=== PATIENT | male | born 1945 | race Two or more races ===

== ENCOUNTER 2018-03-18 11:21 | Inpatient (IN) | payer MEDICARE, MEDICAID ==
[~2018-03-18] VITALS: Ht 180.3 cm; Wt 77.1 kg
[2018-03-18] MEDS ORDERED: Sodium Chloride 500ML 500 ML IV ONE (11:33)
[2018-03-18 11:34] VITALS: BP 137/94
--- NOTE | 2018-03-18 11:54 | Emergency Room Report ---
History of Present Illness General Chief Complaint: Dizziness Source: Patient Present Illness HPI Patient present with multiple complaints Reports that he has had significant dizziness multiple falls over the past several days Discussing further he reports that most of her symptoms also ongoing for about a month to 2 months Patient reports taking medication for his memory Patient also reports taking medications for diabetes however reports that he does not have diabetes Denies any chest pain denies any vomiting he does feel generally malaised Allergies: Coded Allergies: No Known Allergies (Unverified , 03/18/18) Patient History Past Medical History: see triage record Pertinent Family History: none Reviewed Nursing Documentation: PMH: Agreed; PSxH: Agreed Nursing Documentation-PMH Past Medical History: No Stated History Review of Systems All Other Systems: negative except mentioned in HPI Physical Exam Vital Signs Date Time Temp Pulse Resp B/P (MAP) Pulse Ox O2 Delivery O2 Flow Rate FiO2 03/18/18 11:27 98.2 98 20 137/94 96 Room Air 98.2 Sp02 EP Interpretation: reviewed, normal General Appearance: no apparent distress - however appears mildly tremulous Head: normocephalic, atraumatic Eyes: bilateral eye PERRL, bilateral eye EOMI ENT: hearing grossly normal, normal pharynx, TMs + canals normal, uvula midline Neck: full range of motion, supple, no meningismus, no bony tend Respiratory: lungs clear, normal breath sounds, no rhonchi, no respiratory distress, no retraction, no accessory muscle use Cardiovascular #1: normal peripheral pulses, regular rate, rhythm, no edema, no gallop, no JVD, no murmur Gastrointestinal: normal bowel sounds, non tender, soft, no mass, no organomegaly, non-distended, no guarding, no hernia, no pulsatile mass, no rebound Genitourinary: no CVA tenderness Musculoskeletal: normal inspection Neurologic: oriented x3, responsive, cutter and paster press clippings III-XII nml as tested, motor strength/ tone normal, sensory intact Psychiatric: mood/affect normal Skin: normal color, no rash, warm/dry, palpation normal Lymphatic: normal inspection, no adenopathy Medical Decision Making Diagnostic Impression: Primary Impression: Dizziness Additional Impressions: UTI (urinary tract infection) Weakness ER Course Given the patient's history exam and presentation There are multiple differentials in consideration Patient has extensive workup initiated Urine sample is significantly infected Patient started on broad-spectrum antibiotics Patient attempted to ambulate and appears extremely unstable Patient has multiple falls recently including evidence on CT imaging with soft tissue changes on the scalp Patient is not safe to be discharged home and requires further inpatient care Labs Test 03/18/18 11:50 03/18/18 12:52 White Blood Count 8.2 K/UL (4.8-10.8) Red Blood Count 6.17 M/UL (4.70-6.10) Hemoglobin 13.6 G/DL (14.2-18.0) Hematocrit 43.9 % (42.0-52.0) Mean Corpuscular Volume 71 FL (80-99) Mean Corpuscular Hemoglobin 22.0 PG (27.0-31.0) Mean Corpuscular Hemoglobin Concent 30.9 G/DL (32.0-36.0) Red Cell Distribution Width 15.6 % (11.6-14.8) Platelet Count 148 K/UL (150-450) Mean Platelet Volume 8.2 FL (6.5-10.1) Neutrophils (%) (Auto) 71.9 % (45.0-75.0) Lymphocytes (%) (Auto) 20.9 % (20.0-45.0) Monocytes (%) (Auto) 5.5 % (1.0-10.0) Eosinophils (%) (Auto) 0.5 % (0.0-3.0) Basophils (%) (Auto) 1.2 % (0.0-2.0) Prothrombin Time 11.5 SEC (9.30-11.50) Prothromb Time International Ratio 1.1 (0.9-1.1) Activated Partial Thromboplast Time 32 SEC (23-33) Sodium Level 140 MMOL/L (136-145) Potassium Level 3.4 MMOL/L (3.5-5.1) Chloride Level 104 MMOL/L (98-107) Carbon Dioxide Level 27 MMOL/L (21-32) Anion Gap 9 mmol/L (5-15) Blood Urea Nitrogen 13 mg/dL (7-18) Creatinine 0.8 MG/DL (0.55-1.30) Estimat Glomerular Filtration Rate > 60 mL/min (>60) Glucose Level 104 MG/DL (74-106) Calcium Level 9.4 MG/DL (8.5-10.1) Total Bilirubin 1.3 MG/DL (0.2-1.0) Direct Bilirubin 0.9 MG/DL (0.0-0.3) Aspartate Amino Transf (AST/SGOT) 45 U/L (15-37) Alanine Aminotransferase (ALT/SGPT) 75 U/L (12-78) Alkaline Phosphatase 100 U/L (46-116) Total Creatine Kinase 65 U/L (26-308) Creatine Kinase MB 1.6 NG/ML (0.0-3.6) Creatine Kinase MB Relative Index 2.4 Troponin I 0.011 ng/mL (0.000-0.056) Pro-B-Type Natriuretic Peptide 145 pg/mL (0-125) Total Protein 7.6 G/DL (6.4-8.2) Albumin 3.8 G/DL (3.4-5.0) Globulin 3.8 g/dL Albumin/Globulin Ratio 1.0 (1.0-2.7) Lipase 86 U/L (73-393) Urine Color Yellow Urine Appearance Turbid Urine pH 7 (4.5-8.0) Urine Specific [place] 1.010 (1.005-1.035) Urine Protein 2+ (NEGATIVE) Urine Glucose (UA) Negative (NEGATIVE) Urine Ketones 1+ (NEGATIVE) Urine Blood 1+ (NEGATIVE) Urine Nitrite Positive (NEGATIVE) Urine Bilirubin 1+ (NEGATIVE) Urine Ictotest Negative (NEGATIVE) Urine Urobilinogen 4 MG/DL (0.0-1.0) Urine Leukocyte Esterase 2+ (NEGATIVE) Urine RBC 2-4 /HPF (0 - 0) Urine WBC 10-15 /HPF (0 - 0) Urine Squamous Epithelial Cells Few /LPF (NONE/OCC) Urine Calcium Oxalate Crystals Moderate /LPF (NONE) Urine Amorphous Sediment Many /LPF (NONE) Urine Bacteria Many /HPF (NONE) Rhythm Strip Diag. Results EP Interpretation: yes Rate: 67 Rhythm: NSR, no PVC's, no ectopy Chest X-Ray Diagnostic Results Chest X-Ray Diagnostic Results : Chest X-Ray Ordered: Yes # of Views/Limited/Complete: 1 View Indication: Chest Pain EP Interpretation: Yes Interpretation: no consolidation, no pneumothorax, other - Small left effuion Impression: No acute disease Electronically Signed by: Khang Burden, DO CT/MRI/US Diagnostic Results CT/MRI/US Diagnostic Results : Impression cT headImpression: Marked chronic and age-related changes, as described Negative for acute intracranial bleed or mass effect Evidence of bilateral extracranial scalp soft tissue injury Last Vital Signs Date Time Temp Pulse Resp B/P (MAP) Pulse Ox O2 Delivery O2 Flow Rate FiO2 03/18/18 11:34 98.2 20 137/94 96 Room Air 98.2 03/18/18 11:27 98 Status: improved Disposition: ADMITTED INPATIENT Condition: Serious Khang Burden DO Mar 18, 2018 11:54
[2018-03-18 12:04] LABS: BASOPHILS % (AUTO) 1.2 % (0.0-2.0); EOSINOPHILS % (AUTO) 0.5 % (0.0-3.0); HEMATOCRIT 43.9 % (42.0-52.0); HEMOGLOBIN 13.6 G/DL (14.2-18.0); LYMPHOCYTES % (AUTO) 20.9 % (20.0-45.0); MEAN CORPUSCULAR VOLUME 71 FL (80-99); MONOCYTES % (AUTO) 5.5 % (1.0-10.0); NEUTROPHILS % (AUTO) 71.9 % (45.0-75.0); PLATELET COUNT 148 K/UL (150-450); RED BLOOD COUNT 6.17 M/UL (4.70-6.10); RED CELL DISTRIBUTION WIDTH 15.6 % (11.6-14.8); WHITE BLOOD COUNT 8.2 K/UL (4.8-10.8)
[2018-03-18 12:13] LABS: INR 1.1 (0.9-1.1)
[2018-03-18 12:18] LABS: ANION GAP 9 mmol/L (5-15); BLOOD UREA NITROGEN 13 mg/dL (7-18); CALCIUM 9.4 MG/DL (8.5-10.1); CARBON DIOXIDE 27 MMOL/L (21-32); CHLORIDE 104 MMOL/L (98-107); CREATININE 0.8 MG/DL (0.55-1.30); POTASSIUM 3.4 MMOL/L (3.5-5.1); SODIUM 140 MMOL/L (136-145)
[2018-03-18] MEDS ORDERED: UNOBMED (12:20)
[2018-03-18 12:46] LABS: ALANINE AMINOTRANSFERASE 75 U/L (12-78); ALBUMIN 3.8 G/DL (3.4-5.0); ALKALINE PHOSPHATASE 100 U/L (46-116); ASPARTATE AMINO TRANSFERASE 45 U/L (15-37); BILIRUBIN,TOTAL 1.3 MG/DL (0.2-1.0); CKMB 1.6 NG/ML (0.0-3.6); CREATINE KINASE 65 U/L (26-308)
--- NOTE | 2018-03-18 12:48 | Diagnostic Imaging Report ---
Indications: Dizziness, multiple falls over the past several days Technique: Spiral acquisitions obtained through the brain. Angled axial and coronal 5 x 5 mm slices were reconstructed. Total dose length product 1446.46 mGycm. CTDI vol(s) 70.38 mGy. Dose reduction achieved using automated exposure control Comparison: None. Findings: No acute intracranial hemorrhage nor edema. No mass effect nor midline shift. There is marked age-related enlargement of the ventricles and extra-axial CSF spaces. Asymmetric dilatation of the occipital horn and atrium of the right lateral ventricle likely reflects underlying posterior temporal and occipital encephalomalacia, although the surrounding parenchyma is normal in attenuation. There is evidence of prior bilateral cataract surgery. There is a small left high parietal scalp hematoma, and a small high right parietal scalp hematoma as well. The underlying calvarium is intact. The sinuses and mastoids are clear. Impression: Marked chronic and age-related changes, as described Negative for acute intracranial bleed or mass effect Evidence of bilateral extracranial scalp soft tissue injury The CT scanner at [facility] is accredited by the [employer] and the scans are performed using protocols designed to limit radiation exposure to as low as reasonably achievable to attain images of sufficient resolution adequate for diagnostic evaluation.
[2018-03-18 13:10] LABS: BILIRUBIN,DIRECT 0.9 MG/DL (0.0-0.3)
[2018-03-18 13:11] LABS: APPEARANCE,URINE TURBID; BILIRUBIN, URINE 1+ (NEGATIVE); GLUCOSE, URINE (UA) NEGATIVE (NEGATIVE); KETONES,URINE 1+ (NEGATIVE); LEUKOCYTE ESTERASE ,URINE 2+ (NEGATIVE); NITRITE,URINE POSITIVE (NEGATIVE); PH,URINE 7 (4.5-8.0); PROTEIN,URINE 2+ (NEGATIVE); UROBILINOGEN,URINE 4 MG/DL (0.0-1.0)
[2018-03-18 13:12] LABS: COLOR,URINE YELLOW
[2018-03-18 13:35] VITALS: BP 132/75
[2018-03-18] MEDS ORDERED: cefTRIAXone 1 GM in NS 55 ML IVPB ONE (14:15)
[2018-03-18] MEDS ORDERED: HYDROcodone/Acetamin 10/325 tab ORAL ONE (14:45)
--- NOTE | 2018-03-18 15:58 | Diagnostic Imaging Report ---
Indication: Chest pain Technique: One view of the chest Comparison: none Findings: The heart is enlarged. The aorta is tortuous and ectatic. The lungs and right pleural space are clear. There is minimal blunting of the left costophrenic sulcus. There is an old healed fracture deformity of the right seventh rib Impression: Equivocal small left pleural effusion. No acute process otherwise
[2018-03-18 16:00] VITALS: BP 130/99
[2018-03-18] MEDS ORDERED: Gadavist 7.5mMol/7.5ml vial IV PRN (17:00)
[2018-03-18] MEDS: Aspirin Baby 81mg ORAL SCH (17:20)
[2018-03-18] MEDS: NS w/KCl 20mEq 1,000 ML IV SCH (18:54)
[2018-03-19] VITALS: BP 133/88
--- NOTE | 2018-03-19 00:45 | History and Physical Report ---
DATE OF ADMISSION: 03/18/2018 CARDIOLOGY EVALUATION CONSULTING PHYSICIAN: Keyur Blanchard M.D. REQUESTING PHYSICIAN: Dyllan Quiñonez M.D. REASON FOR ADMISSION: Dizziness, unsteady gait, and abnormal EKG. HISTORY OF PRESENT ILLNESS: This is a 72-year-old male who has had several months of progressive dizziness, lightheadedness at times, unsteady gait, and episodic falls as a result. He notes that his symptoms worsened over the past few days. He also developed diaphoresis and shortness of breath this afternoon prompting him to come to the emergency room. He denied chest pain. He is unaware of any history of prior cardiovascular disease. He has been quite active playing tennis regularly up until the past few months due to limitations from the symptoms described. PAST MEDICAL HISTORY: Notable for diabetes. ALLERGIES: He has no allergies. MEDICATIONS: Reviewed and reconciled. SOCIAL HISTORY: Active smoker, 50-plus pack-years. No alcohol or substance abuse. REVIEW OF SYSTEMS: No fevers or chills. No loss of vision or hearing. No history of head trauma. No history of seizure or stroke. No history of prostate cancer or elevated PSA. He does occasionally have difficulty voiding. No change in bowel habits. No history of melena or bright red blood per rectum. No history of asthma or blood clots in the legs. He has not been on steroids in the past. No history of myocardial infarction or exertional chest pain. No history of irregular heartbeat or rheumatic heart disease. PHYSICAL EXAMINATION: VITAL SIGNS: Blood pressure 137/94, pulse 98, respiratory rate 20, and afebrile. HEENT: Conjunctivae pink. Sclerae anicteric. Oropharynx clear. NECK: Supple. Jugular venous pressure normal. LUNGS: Clear. CARDIAC: Regular rhythm and rate. Normal S1, S2 with no murmur, rub, or gallop. ABDOMEN: Soft, nontender. No guarding or rebound. No CVA tenderness. EXTREMITIES: No clubbing or cyanosis nor edema. SKIN: With few abrasions on hands from prior falls. NEUROLOGIC: Reveals no asterixis, no ataxia. Gait is steady. Some sensory deficits of the extremities seen. LABORATORY DATA: Urinalysis, 2+ leukocyte esterase, 1+ blood, 2+ protein, 10 to 15 white cells. Troponin 0.011. Pro-natriuretic peptide 145. BUN 13, creatinine 0.8, potassium 3.4. White count is 8.2 and hemoglobin 13.6. Head CT, no acute process, there is scalp soft tissue injury. EKG with sinus rhythm and frequent ventricular ectopics, nonspecific ST change. IMPRESSION: 1. Ventricular ectopy. 2. Nicotine addiction. 3. Chronic dizziness. Episodes of diuresis may be anginal. 4. History of diabetes with possible neuropathy. 5. 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 PLAN: 1. Cardiac monitoring. 2. Metabolic profile. 3. Echocardiogram. 4. Check vitamin levels. 5. Empiric antibiotics. 6. Carotid vertebrobasilar duplex. 7. MRI of the brain. 8. Antiplatelet therapy. 9. Further recommendations to follow. Keyur Blanchard M.D. DR: Elif JOB#: [id number] CC: BRIANNE
[2018-03-19 04:00] VITALS: BP 136/87
[2018-03-19] MEDS: NS w/KCl 20mEq 1,000 ML IV SCH (04:28)
[2018-03-19 08:00] VITALS: BP 150/93
[2018-03-19] MEDS ORDERED: Heparin 5000 units/ml inj SUBQ SCH ×2 (09:00→21:00)
[2018-03-19] MEDS: Aspirin Baby 81mg ORAL SCH (09:30)
[2018-03-19 10:30] VITALS: BP 145/98
[2018-03-19 12:00] VITALS: BP 141/91
[2018-03-19 12:51] LABS: BASOPHILS % (AUTO) 0.7 % (0.0-2.0); EOSINOPHILS % (AUTO) 1.8 % (0.0-3.0); HEMOGLOBIN 13.1 G/DL (14.2-18.0); MEAN CORPUSCULAR VOLUME 72 FL (80-99); MONOCYTES % (AUTO) 8.2 % (1.0-10.0); NEUTROPHILS % (AUTO) 63.3 % (45.0-75.0); PLATELET COUNT 137 K/UL (150-450); RED BLOOD COUNT 5.86 M/UL (4.70-6.10); RED CELL DISTRIBUTION WIDTH 15.7 % (11.6-14.8)
[2018-03-19 13:28] LABS: ALANINE AMINOTRANSFERASE 78 U/L (12-78); ALBUMIN 3.9 G/DL (3.4-5.0); ALBUMIN/GLOBULIN RATIO 1.1 (1.0-2.7); ALKALINE PHOSPHATASE 100 U/L (46-116); ANION GAP 7 mmol/L (5-15); ASPARTATE AMINO TRANSFERASE 51 U/L (15-37); BILIRUBIN,TOTAL 0.8 MG/DL (0.2-1.0); BLOOD UREA NITROGEN 13 mg/dL (7-18); CALCIUM 9.5 MG/DL (8.5-10.1); CARBON DIOXIDE 28 MMOL/L (21-32); CHLORIDE 104 MMOL/L (98-107); CREATININE 0.8 MG/DL (0.55-1.30); POTASSIUM 3.8 MMOL/L (3.5-5.1); SODIUM 138 MMOL/L (136-145)
[2018-03-19] MEDS ORDERED: Gadavist 7.5mMol/7.5ml vial IV PRN (17:00)
--- NOTE | 2018-03-19 20:15 | Progress Note ---
DATE: 03/19/2018 CARDIOLOGY PROGRESS NOTE SUBJECTIVE: The patient feels better. He has no chest pain or shortness of breath. He still has dizziness at times. He has not completed his diagnostic studies. OBJECTIVE: VITAL SIGNS: Blood pressure 145/98, heart rate 85, respiratory rate 20, and afebrile. LUNGS: Clear. CARDIAC: Regular. Normal S1 and S2. ABDOMEN: Soft. EXTREMITIES: No edema. LABORATORY AND DIAGNOSTIC DATA: White count 6 and hemoglobin 13. Potassium 3.8, BUN 13, and creatinine 0.8. Troponins are negative. TSH, B12, folate, PSA all normal. IMPRESSION: 1. Vertebrobasilar symptoms possibly due to labyrinthitis versus central nervous system event. 2. Microcytic anemia. 3. Nonsustained ventricular ectopy. 4. Hypertension with hypertensive heart disease and elevated blood pressure. PLAN: 1. Continue anti-platelet therapy. 2. Advance antihypertensives. 3. Check iron panel. MRI of the brain is pending. 4. Echocardiogram will be reviewed and noninvasive assessment of coronary flow . 5. We will follow. Keyur Blanchard M.D. DR: BILLY JOB#: [id number] CC:
[2018-03-20] MEDS ORDERED: Aspirin Baby 81mg ORAL SCH (09:00)
--- NOTE | 2018-03-20 16:10 | Cardiology Report ---
APPROVED REPORT EKG Measurement Heart [id number] AR [id number] Sinus rhythm with occasional premature ventricular complexes Left axis deviation T wave abnormality, consider anterior ischemia Abnormal ECG
--- NOTE | 2018-03-21 11:14 | Cardiology Report ---
APPROVED REPORT EXAM: Two-dimensional and M-mode echocardiogram with Doppler and color Doppler. INDICATION Dizziness M-Mode DIMENSIONS IVSd1.7 (0.7-1.1cm)Left Atrium (MM)3.6 (1.6-4.0cm) LVDd4.4 (3.5-5.6cm)Aortic Root3.5 (2.0-3.7cm) PWd1.0 (0.7-1.1cm)Aortic Cusp Exc.1.8 (1.5-2.0cm) LVDs2.7 (2.5-4.0cm) PWs1.7 cm Normal left ventricular chamber size, systolic function and wall motion. Left ventricular ejection fraction estimated to be 60 %. Mild left ventricular hypertrophy. Anterior Echo-free space, may be due to pericardial fat or effusion. Mild right atrial and right ventricular enlargement. Left atrial chamber sizes is within normal limits. Focal aortic valve sclerosis with adequate cusp excursion. Mildly thickened mitral valve leaflets with normal excursion. Mild mitral annulus and aortic root calcification. Pulmonic valve not well visualized. Normal tricuspid valve structure. IVC is normal in size with physiological collapse. A color flow and spectral Doppler study was performed and revealed: Mild aortic insufficiency. Mild mitral regurgitation. Mitral diastolic velocities suggest mild left ventricular diastolic dysfunction (Grade I). No tricuspid regurgitation. Tricuspid systolic velocities suggests peak right ventricular systolic pressure of 18 mmHg. No pulmonic regurgitation present.
--- NOTE | 2018-03-22 01:32 | Diagnostic Imaging Report ---
APPROVED REPORT CPT Code: 96642 Vascular Symptoms Comments: DIZZINESS/VERTIGO. Doppler Spectral Velocity Analysis RightLeft RIGHT SIDE: CCA - Imaging reveals no significant plaque within the extracranial carotid arteries. The Doppler spectral flow analysis is within normal limits throughout the extracranial carotid arteries. VERTEBRAL - The vertebral artery is within normal limits. LEFT SIDE: CCA/BULB - Imaging reveals calcified, minimal plaque in both carotid bulbs. arteries. VERTEBRAL - The vertebral artery is patent, without evidence of stenosis or steal.
--- NOTE | 2018-03-22 08:35 | Discharge Summary ---
Discharge Summary Discharge Summary _ DATE OF ADMISSION: 03/18/2018 DATE OF DISCHARGE: 03/19/2018. Patient signed AMA REASON FOR ADMISSION: 72 years old male with past medical history of diabetes, presented with several months of progressive dizziness, lightheadedness ,unsteady gait and occasional episodes of falls as a result. He noted that his symptoms worsened over the past few days. He developed diaphoresis and shortness of breath at early afternoon , which prompted him to come to ED for evaluation. He denied chest pain. He denied any history of prior cardiovascular disease. Upon evaluation vital signs were stable. Laboratory workup revealed no leukocytosis. Mild microcytic anemia with hemoglobin 13.6, hematocrit 43.9. Stable renal parameters and electrolytes. Troponin negative. EKG revealed sinus rhythm with frequent ventricular ectopy, nonspecific ST changes. Pro BNP 145. CK within normal limits. AST 45, total bili 1.3. Urinalysis with evidence of UTI. Chest x-ray revealed equivocal small left pleural effusion. CT of the head revealed mild chronic age-related changes, but was negative for acute intracranial bleeding or mass effect. Also noted evidence of bilateral extracranial scalp soft tissue injury. Patient admitted with diagnoses of dizziness, weakness ,urinary tract infection , ventricular ectopy. HOSPITAL COURSE: Patient admitted to telemetry floor. Patient was started on gentle hydration. Serial troponin were negative. EKG revealed no acute ischemic changes. Patient was ruled out for acute [place]. No evidence of significant arrhythmia on telemetry. Ventricular ectopy was nonsustained. Echocardiogram revealed preserved ejection fraction of 60%, no wall motion abnormalities. Mild left ventricular hypertrophy and mild mitral regurgitation. Carotid duplex was essentially stable. Patient started on antiplatelet therapy with aspirin. MRI of the brain was ordered. No orthostatic blood pressure changes. DVT prophylaxis provided. Patient started on empiric antibiotic. Urine culture revealed Staphylococcus coagulase-negative. PSA ,TSH, folate were all within normal limits. Hemoglobin A1c 5.2. RPR negative. Anemia workup was ordered. Prior to signing AMA hemoglobin 13.1 hematocrit 42. Fall precautions were maintained. Patient decided to sign AGAINST MEDICAL ADVICE. He stated, that he felt better and he was worried about his monitor. The risks and consequences of signing AGAINST MEDICAL ADVICE were discussed with patient in detail. Patient verbalized understanding, nevertheless signed AMA form and left. Patient was counseled on return to emergency department precautions. Patient cwas counseled on smoking cessation FINAL DIAGNOSES: Chronic dizziness Possible labyrinthitis versus central nervous system event Nicotine addiction Nonsustained ventricular ectopy Microcytic anemia UTI with was Staphylococci coagulase negative I have been assigned to dictate discharge summary for this account. I was not involved in the patient's management. Shelby Velazquez NP Mar 22, 2018 08:35
== END 2018-03-19 13:45 | disposition left against medical advice (07) | DRG 111 ==
LOC: EMR 11:50 → EDBEDREQ 14:35 → 2E 14:40 → EDBD 14:40 → 3E 03-19 10:30
DX: H83.09 Labyrinthitis, unspecified ear (principal); B95.61 Methicillin susceptible Staphylococcus aureus infection as the cause of diseases classified elsewhere; I11.9 Hypertensive heart disease without heart failure; D50.9 Iron deficiency anemia, unspecified; F17.200 Nicotine dependence, unspecified, uncomplicated; N39.0 Urinary tract infection, site not specified; I49.3 Ventricular premature depolarization; R42 Dizziness and giddiness; B95.7 Other staphylococcus as the cause of diseases classified elsewhere
CPT/HCPCS: 36415; 70450; 70551; 71045; 80053; 81003; 82248; 82550; 82553; 82607; 82746; 83036; 83690; 83880; 84153; 84443; 84484; 85025; 85610; 85730; 86592; 87086; 87181; 93005; 93306; 93880; 96365; 99285; J8499

== ENCOUNTER 2020-04-26 14:04 | Emergency (ER) | payer MEDICARE, MEDICAID ==
[~2020-04-26] VITALS: Ht 177.8 cm; Wt 79.4 kg
[~2020-04-26 14:04] MED LIST: UNOBMED
--- NOTE | 2020-04-26 14:09 | Emergency Room Report ---
History of Present Illness General Source: Patient, EMS Present Illness HPI Patient is a 75-year-old male presents for increased cough and sore throat. Patient was sent in from assisted living. Prior history of dementia. [facility] in [facility]. Primary medical doctor is Dr. Remy clemens.Patient had been having normal temperature and was given Tylenol for pain. He had not been having reported vomiting or diarrhea.Patient denies any shortness of breath. Denies any new leg pain or swelling. He denies any current complaints. States he feels fine. Allergies: Coded Allergies: No Known Allergies (Unverified , 03/18/18) Patient History Past Medical History: see triage record Reviewed Nursing Documentation: PMH: Agreed; PSxH: Agreed Nursing Documentation-PMH Hx Cardiac Problems: No Hx Cancer: No Hx Gastrointestinal Problems: No Hx Dizziness: Yes - x2 months now Hx Syncope: Yes - near syncope Hx Weakness: Yes Review of Systems All Other Systems: negative except mentioned in HPI Physical Exam Sp02 EP Interpretation: reviewed, normal General Appearance: normal inspection, no apparent distress, alert, GCS 15, Chronically Ill Head: atraumatic ENT: normal ENT inspection, hearing grossly normal, normal voice Neck: normal inspection, full range of motion, supple, no bony tend Respiratory: normal inspection, lungs clear, normal breath sounds, no respiratory distress, no retraction, no wheezing Cardiovascular #1: regular rate, rhythm, no edema Gastrointestinal: normal inspection, normal bowel sounds, non tender, soft, no guarding, no hernia Genitourinary: no CVA tenderness Musculoskeletal: normal inspection, back normal, normal range of motion Neurologic: alert, motor strength/tone normal, news commentator III-XII nml as tested, oriented x3, responsive, speech normal, normal inspection Psychiatric: normal inspection, judgement/insight normal, mood/affect normal Medical Decision Making Diagnostic Impression: Primary Impression: Cough ER Course Presented for cough. Differential diagnosis include was not limited to influenza, bronchitis, pneumonia, coronavirus infection among others. Because of complexity of patient's case imaging studies were ordered. Patient not appear to be any acute distress and denies any current symptoms. EKG was unchanged from previous EKG from 2 years ago. Patient denies any chest pain shortness of breath dizziness or any other current medical complaints. He states he wants to go back to his facility. Coronavirus testing was ordered. chest x-ray was ordered. Chest x-ray read by radiology showed no significant pleural effusion unchanged mild blunting of the left costophrenic sulcus possibly chronic pleural thickening no pneumothorax mild pulmonary vascular congestion, stable cardiomegaly. Patient was discussed with Dr. Brown and patient will be sent back to his facililty. Patient was noted to have 99% ox ygen saturation does not appear to be any respiratory distress. He is to return if worse. This medical record is generated with Info oven technician software. There may be some oven technician discrepancies related to use of this software EKG Diagnostic Results Rate: normal Rhythm: NSR ST Segments: other - Unchanged from previous from 2 years ago Status: improved Disposition: HOME, SELF-CARE Condition: Stable Amaury Harris MD Apr 26, 2020 14:09
[2020-04-26 14:15] VITALS: BP 138/82
--- NOTE | 2020-04-26 14:15 | NUR ---
ED Nurse Note: PT brought in by aidan marcus from [facility] for cough and sore throat since this morning. pt sp02 in room air is 99%. No SOB present.
--- NOTE | 2020-04-26 14:30 | NUR ---
ED Nurse Note: covid swab collected and sent to lab,
--- NOTE | 2020-04-26 15:05 | NUR ---
ED Nurse Note: urine sample collected and sent to lab. cxr being done at bedside at this time.
--- NOTE | 2020-04-26 15:09 | NUR ---
ED Nurse Note: report given to Callum Rodriguez RN . endorsed plan of care.
--- NOTE | 2020-04-26 15:41 | Diagnostic Imaging Report ---
Indication: Reason For Exam: Shortness of breath Technique: One view of the chest Comparison: 03/18/18 Findings: Stable cardiomegaly. The aorta is again noted to be tortuous and ectatic. There is mild pulmonary vascular congestion. No focal consolidation. No significant pleural effusion; unchanged mild blunting of the left costophrenic sulcus - possibly chronic pleural thickening. No pneumothorax. Osseous structures demonstrate no acute abnormality. IMPRESSION: Cardiomegaly and mild pulmonary vascular congestion/early intersitial edema.
[2020-04-26 15:42] LABS: APPEARANCE,URINE CLEAR; BILIRUBIN, URINE NEGATIVE (NEGATIVE); GLUCOSE, URINE (UA) NEGATIVE (NEGATIVE); KETONES,URINE NEGATIVE (NEGATIVE); LEUKOCYTE ESTERASE ,URINE NEGATIVE (NEGATIVE); NITRITE,URINE NEGATIVE (NEGATIVE); PH,URINE 5 (4.5-8.0); PROTEIN,URINE NEGATIVE (NEGATIVE); UROBILINOGEN,URINE NORMAL MG/DL (0.0-1.0)
[2020-04-26 15:43] LABS: COLOR,URINE YELLOW
[2020-04-26 17:00] VITALS: BP 133/71
--- NOTE | 2020-04-26 17:04 | NUR ---
ED Nurse Note: Report given to Samia escamilla [facility]
[2020-04-26] MEDS ORDERED: Acetaminophen 650 MG SUPP RECTAL ONE (17:45)
[2020-04-26 19:13] VITALS: BP 109/78
[2020-04-26 19:28] VITALS: BP 111/79
--- NOTE | 2020-04-26 19:28 | NUR ---
ED Nurse Note: Pt cleared by ERMD for discharge. DC instructions was given and explained to pt and to [facility] care staff, verbalized understanding of teachings. All medical deviecs such as ID band removed. Pt is AAO x4, ambulatory and left with all personal belongings. Pt was picked up by 2 EMT via [facility].
== END 2020-04-26 19:28 | disposition home or self-care (01) ==
LOC: EDBD 14:04 → EMR 14:37
DX: R05 Cough (principal); R07.0 Pain in throat; F03.90 Unspecified dementia, unspecified severity, without behavioral disturbance, psychotic disturbance, mood disturbance, and anxiety; I51.7 Cardiomegaly
CPT/HCPCS: 71045; 81003; 93005; 99283; U0002